=== PATIENT | female | born 1950 | race African-American/Black ===

== ENCOUNTER → 2017-05-13 | Outpatient (CLI) | payer OTHER | LOC: CAT | DX: R07.9 Chest pain, unspecified (principal); R59.1 Generalized enlarged lymph nodes ==

== ENCOUNTER → 2017-05-13 | Outpatient (CLI) | payer OTHER ==
[2017-05-13 10:07] LABS: CALCIUM 9.1 mg/dL (8.5-10.1); CREATININE 1.1 mg/dL (0.6-1.0); POTASSIUM 3.8 mmol/L (3.5-5.1)
== END ==
LOC: LABMALL 08:31
PROVIDERS: Family Medicine
DX: R07.9 Chest pain, unspecified (principal); R59.1 Generalized enlarged lymph nodes; M79.632 Pain in left forearm

== ENCOUNTER → 2020-01-07 | Outpatient (CLI) | payer OTHER | LOC: CAT 08:42 | PROVIDERS: ATTEND Family Medicine | DX: Z13.6 Encounter for screening for cardiovascular disorders (principal); I25.10 Atherosclerotic heart disease of native coronary artery without angina pectoris; E78.00 Pure hypercholesterolemia, unspecified ==